=== PATIENT | female | born 1970 | race Caucasian/White ===

== ENCOUNTER 2021-06-22 11:01 | Outpatient (CLI) | payer OTHER, SELFPAY ==
[2021-06-22 11:44] LABS: Hematocrit 42.6 % (35.0-49.0); Hemoglobin 13.9 g/dL (12.0-15.0); Mean Corpuscular HGB Conc 32.6 g/dL (32.0-36.0); Mean Corpuscular Hemoglobin 30.5 pg (27.0-31.0); Mean Corpuscular Volume 93.6 fL (78.0-102.0); Mean Platelet Volume 9.8 fl (9.2-11.8); Platelet Count Result 273 K/mm3 (150-420); Red Blood Count 4.55 M/mm3 (4.20-5.40); Red Cell Distribution Width 13.5 % (11.6-14.4)
[2021-06-22 12:26] LABS: Alanine Aminotransferase 17 U/L (14-59); Albumin Level 3.6 g/dL (3.4-5.0); Alkaline Phosphatase 71 U/L (46-116); Anion Gap 9 mmol/L (8-16); Aspartate Amino Transferase 16 U/L (15-37); Bilirubin,Total 0.2 mg/dL (0.00-1.00); Blood Urea Nitrogen 14 mg/dL (7-18); Calcium 9.1 mg/dL (8.5-10.1); Carbon Dioxide 27 mmol/L (21-32); Chloride 103 mmol/L (98-108); Cholesterol 181 mg/dL (0-200); Estimated Glomerular Filt Rate > 60; Glucose 81 mg/dL (70-99); HDL Direct 51 mg/dL (40-60); LDL Cholesterol Calculated 116 mg/dL (<130); Osmolality Calculated 287 mOsm/kg (285-295); Potassium 4.2 mmol/L (3.5-5.1); Sodium 139 mmol/L (136-145); Total Protein 7.2 g/dL (6.4-8.2); Triglycerides 70 mg/dL (0-150)
[2021-06-22 12:31] LABS: Thyroid Stimulating Hormone Reflex 2.01 u/IU/mL (0.36-3.74)
== END 2021-06-22 11:02 | disposition home or self-care (01) ==
LOC: CHSLAB 11:03
PROVIDERS: PCP Family Medicine; Visit Provider Family Medicine
DX: Z00.00 Encounter for general adult medical examination without abnormal findings (principal); E11.9 Type 2 diabetes mellitus without complications
CPT/HCPCS: 36415; 80053; 80061; 84443; 85027

== ENCOUNTER 2021-06-26 07:38 | Outpatient (CLI) | payer OTHER, SELFPAY ==
--- NOTE | ~2021-06-26 | MM_ITS ---
EXAMINATION: MM screening [facility] BI w louisa HISTORY: Screening mammogram; baseline examination TECHNIQUE: Craniocaudal and mediolateral oblique 3-D tomosynthesis images were obtained and synthetic 2-D images were generated. CAD analysis was submitted and interpreted. COMPARISON: No prior mammogram is available for comparison at this institution. BREAST PARENCHYMAL COMPOSITION: The breasts are almost entirely fatty. FINDINGS: Benign-appearing circumscribed 4 x 5.2 mm opacity in the upper outer left breast, consisten t with intramammary lymph node. There is no evidence of suspicious mass, calcification, or architectu ral distortion to suggest malignancy in either breast. There has been no suspicious interval change. IMPRESSION: 1. No mammographic evidence of malignancy. 2. Recommend routine screening mammography in one year. BI-RADS Category 2: Benign finding(s). Reviewed, dictated and finalized at location A. IFIED ALCOHOL AND DRUG COUNSELOR
== END 2021-06-26 07:39 | disposition home or self-care (01) ==
LOC: CHSIMG 07:39
PROVIDERS: PCP Family Medicine; Visit Provider Family Medicine
DX: Z12.31 Encounter for screening mammogram for malignant neoplasm of breast (principal)
CPT/HCPCS: 77063; 77067

== ENCOUNTER 2022-07-05 07:46 | Outpatient (CLI) | payer OTHER, SELFPAY ==
--- NOTE | ~2022-07-05 | MM_ITS ---
EXAMINATION: MM screening [facility] BI w louisa HISTORY: Screening mammogram TECHNIQUE: Craniocaudal and mediolateral oblique 3-D tomosynthesis images were obtained and synthetic 2-D images were generated. CAD analysis was submitted and interpreted. COMPARISON: 06/26/2021 BREAST PARENCHYMAL COMPOSITION: There are scattered areas of fibroglandular density. FINDINGS: No suspicious mass, calcification, or architectural distortion are identified in either jayden ast to suggest malignancy. There has been no suspicious interval change. IMPRESSION: 1. No mammographic evidence of malignancy. 2. Recommend routine screening mammography in one year. BI-RADS Category 1: Negative Reviewed, dictated and finalized at location A. BOBJ DEVELOPER
== END 2022-07-05 07:47 | disposition home or self-care (01) ==
LOC: CHSIMG 07:48
PROVIDERS: PCP Family Medicine; Visit Provider Family Medicine
DX: Z12.31 Encounter for screening mammogram for malignant neoplasm of breast (principal)
CPT/HCPCS: 77063; 77067

== ENCOUNTER 2023-07-08 07:55 | Outpatient (CLI) | payer OTHER, SELFPAY ==
--- NOTE | ~2023-07-08 | MM_ITS ---
EXAMINATION: MM screening [facility] BI w louisa HISTORY: Screening mammogram TECHNIQUE: Craniocaudal and mediolateral oblique 3-D tomosynthesis images were obtained and synthetic 2-D images were generated. CAD analysis was submitted and interpreted. COMPARISON: 07/05/2022, 06/26/2021 bilateral screening mammogram examinations BREAST PARENCHYMAL COMPOSITION: There are scattered areas of fibroglandular density. FINDINGS: There is no evidence of suspicious mass, calcification, or architectural distortion to sugg est malignancy in either breast. There has been no suspicious interval change. IMPRESSION: 1. No mammographic evidence of malignancy. 2. Recommend routine screening mammography in one year. BI-RADS Category 1: Negative Reviewed, dictated and finalized at location A. CHOOL SPECIAL EDUCATION TEACHER
== END 2023-07-08 07:56 | disposition home or self-care (01) ==
LOC: CHSIMG 07:57
PROVIDERS: PCP Family Medicine; Visit Provider Family Medicine
DX: Z12.31 Encounter for screening mammogram for malignant neoplasm of breast (principal)
CPT/HCPCS: 77063; 77067

== ENCOUNTER 2024-07-12 07:08 | Outpatient (CLI) | payer OTHER, SELFPAY ==
--- NOTE | ~2024-07-12 | MM_ITS ---
EXAMINATION: MM screening [facility] BI w louisa HISTORY: Screening mammogram TECHNIQUE: Craniocaudal and mediolateral oblique 3-D tomosynthesis images were obtained and synthetic 2-D images were generated. CAD analysis was submitted and interpreted. COMPARISON: 07/08/2023, 07/05/2022, 06/26/2021 BREAST PARENCHYMAL COMPOSITION:Not Dense. There are scattered areas of fibroglandular density. FINDINGS: No suspicious mass, calcification, or architectural distortion are identified in either jayden ast to suggest malignancy. There has been no suspicious interval change. IMPRESSION: No mammographic evidence of malignancy. Recommend routine screening mammography in one year. BI-RADS Category 1: Negative Reviewed, dictated and finalized at location .
--- OUTSIDE RECORDS SUMMARY | 2024-07-12 07:13 | XMS_ITS | Referral Summary ---
Author Organization [facility] Address [address] [place] [address] Care Team Providers Care Die Storage Clerk Name Role Phone Saroj Simmons MD Primary Care Provider [phone] Allergies No known active allergies Medications famotidine (PEPCID) 20 mg tablet Take 1 tablet (20 mg total) by mouth daily 30 tablet 11 9 Active ramelteon (ROZEREM) 8 mg tabletIndicatio ns:Sleep-Onset Insomnia Take 1 tablet (8 mg total) by mouth nightly as needed for sleep 30 tablet 1 9 Active Additional Information Patient not taking.Reported on 04/04/2019 docusate sodium (COLACE) 100 mg capsuleIndicati ons:constipatio n Take 1 capsule (100 mg total) by mouth 2 (two) times a day with a glass of water 30 capsule 2 9 Active potassium, sodium phosphates (PHOS-NAK) 280-160-250 mg powder in packet Take by mouth Active Active Problems Problem Noted Date Diagnosed Date 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 SBO (small bowel obstruction) 01/23/2019 Assessment & Plan (01/25/2019 11:49 AM CDT): Outside CT 01/22 High-grade distal ileal small bowel obstruction with pseudo-feces, bowel wall hyperenhancement, and adjacent free fluid which are all signs that can be seen in early ischemia. No hollow viscus perforation. NPO, NGT, IVFs, small bowel follow through completed on 01/24: There is no obstruction or extraluminal leakage of contrast noted. Contrast reached the hepatic flexure in 1 hour and 15 minutes, normal transit time. The bowel was not dilated. Normal contrast transit time through the small bowel. No small bowel dilatation. Patient had return of bowel function after small bowel follow through 01/25: NGT removed and started on CLD Abdominal pain 01/22/2019 Assessment & Plan (01/24/2019 12:19 PM CDT): Improved with NGT and bowel rest Nausea & vomiting 01/22/2019 Assessment & Plan (01/24/2019 12:19 PM CDT): Improved with NGT placement, PRN zofran Umbilical hernia 01/22/2019 Assessment & Plan (01/25/2019 11:50 AM CDT): 01/22 CT from outside hospital read as Fat-containing ventral abdominal hernia which likely contains infarcted fat given the degree of fat stranding. Continue pain control Pending surgical plan, patient will follow up with Dr. 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 Gender Identity Not on file Sexual Orientation Not on file Last Filed Vital Signs Vital Sign Reading Time Taken Comments Blood Pressure 118/82 04/04/2019 12:58 PM ENROBING MACHINE FEEDER Pulse 81 04/04/2019 12:58 PM ENROBING MACHINE FEEDER Temperature 36.9 C (98.4 F) 04/04/2019 12:58 PM ENROBING MACHINE FEEDER Respiratory Rate 16 01/26/2019 11:10 AM CDT Oxygen Saturation 100% 01/26/2019 11:10 AM CDT Inhaled Oxygen Concentration - - Weight 85 kg (187 lb 6.4 oz) 04/04/2019 12:58 PM ENROBING MACHINE FEEDER Height 157.5 cm (5' 2 ) 04/04/2019 12:58 PM ENROBING MACHINE FEEDER Body Mass Index 34.28 04/04/2019 12:58 PM ENROBING MACHINE FEEDER Plan of Treatment Not on file Insurance [employer] PPO Advance Directives For more information, please contact: [phone] * Full Code (Latest Code Status on File) Date Activated Date Inactivated Comments 01/22/2019 11:35 PM 01/26/2019 6:18 PM Care Teams Die Storage Clerk Relationship Specialty Start Date End Date Saroj Simmons MD [address] [place] [address] [id number] PCP - General Family Medicine 03/02/19
--- OUTSIDE RECORDS SUMMARY | 2024-07-12 07:13 | XMS_ITS | Continuity of Care Document ---
Author Organization [facility] Address [address] [place] [address] Phone Care Team Providers Care Special Education Inclusion Teacher Name Role Phone Chauncey Madera MD Unavailable Unavailable Advance Directives Directive Yes / No Effective Date File Name No Information Encounters Encounter Description Practice Location Reason(s) For Visit Diagnoses Date Provider Providers Copied on Encounter [facility], [address] [place], [place], [id number], [place] tel:[phone] [address] [place] Professional No Information 0 [address] Santy Grossman. [address] [facility] [address], [place], [place], [id number], [place]. tel:[phone] Family History Family Member Type Diagnosis Age At Onset No Information Payers Payer name Insurance type Covered alliance party ID Authoriza tion(s) No Information Social History Type Description Quantity Date Captured Comments Sex Female Smoking Status No Information Chief Complaint And Reason For Visit No Information Reason For Referral Reason For Referral No Information History Of Present Illness Encounter Date Complaint History Of Prese nt Illness No Information Functional Status Date Functional Assessmen t No Information Instructions Date Instruction Additional Infor mation No Information Assessments Type Assessment Date No Information Patient Care Teams Name Effective Dates (start - stop) Status Members No Information
--- OUTSIDE RECORDS SUMMARY | 2024-07-12 07:13 | XMS_ITS | Clinical Summary ---
Author Organization [facility] Address [address] [place] [address] Care Team Providers Care Supervisor Final Name Role Phone Saroj Simmons MD Primary Care Provider [phone] Allergies No known active allergies Medications famotidine [...] plan, patient will follow up with Dr. Ventuar post op Surgical History Surgery Date Site/Laterality Comments HYSTERECTOMY 05/02/2003 - 05/01/2004 Hysterectomy ABDOMINAL SURGERY HERNIA REPAIR EYE SURGERY Medical History Medical History Date Comments Anxiety disorder Anxiety Depression Depression Iritis Heartburn Abdominal pain Pneumonia Psychiatric illness Anxiety Depression Vomiting Family History Medical History Relation Name Comments Suicidality Father suicide; Cause of : suicide Car Accident Mother MVA; Cause of D eath: MVA Relation Name Status Comments Father (Age 31) Mother (Age 40) Social History Tobacco Use Types Packs/Day Years [...] on file Legal Sex Female 11:49 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 Gender Identity Not on file Sexual Orientation Not on file Obstetrics History Last Filed Vital Signs Vital Sign Reading Time Taken Comments Blood Pressure 118/82 04/04/2019 12:58 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 Pulse 81 04/04/2019 12:58 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 Temperature 36.9 C (98.4 F) 04/04/2019 12:58 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 Respiratory Rate 16 01/26/2019 11:10 AM CDT Oxygen Saturation 100% 01/26/2019 11:10 AM CDT Inhaled Oxygen Concentration - - Weight 85 kg (187 lb 6.4 oz) 04/04/2019 12:58 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 Height 157.5 cm (5' 2 ) 04/04/2019 12:58 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 Body Mass Index 34.28 04/04/2019 12:58 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 Plan of Treatment Not on file Insurance [employer] PPO [facility] PPO Advance Directives For more information, please contact: [phone] * Full Code (Latest Code Status on File) Date Activated Date Inactivated Comments 01/22/2019 11:35 PM 01/26/2019 6:18 PM Care Teams Supervisor Final Relationship Specialty Start Date End Date Saroj Simmons MD [address] [place] [id number] PCP - General Family Medicine 03/02/19
== END 2024-07-12 07:09 | disposition home or self-care (01) ==
LOC: CHSIMG 07:10
PROVIDERS: PCP Family Medicine; Visit Provider Nurse Practitioner Family
DX: Z12.31 Encounter for screening mammogram for malignant neoplasm of breast (principal)
CPT/HCPCS: 77063; 77067